=== PATIENT | female | born 1955 | race Caucasian/White ===

== ENCOUNTER 2017-10-25 13:29 | Inpatient (IN) | payer OTHER ==
[2017-10-25] MEDS ORDERED: SODIUM CHLORIDE 0.9% 1000ML 1,000 ML IV SCH (13:45)
[2017-10-25 14:05] LABS: HEMATOCRIT 36 % (35-47); HEMOGLOBIN 12.4 gm/dl (12.0-15.5); MEAN CORPUSCULAR HEMOGLOBIN 32.6 pg (27.0-32.0); MEAN CORPUSCULAR HGB CONC 34.6 gm/dl (32.0-36.0); MEAN CORPUSCULAR VOLUME 94 fL (81-99)
[2017-10-25 14:10] LABS: CALCIUM 7.5 mg/dl (8.5-10.1); CARBON DIOXIDE 21.2 mEq/L (21-32); CREATININE 1.79 mg/dl (0.60-1.00); POTASSIUM 4.5 mMol/L (3.5-5.1)
[2017-10-25 14:23] LABS: BAND NEUTROPHILS % (MANUAL) 8 %; BASOPHILS % (MANUAL) 0 % (0-3); EOSINOPHILS % (MANUAL) 1 % (0-9); LYMPHOCYTES % (MANUAL) 12 % (10-50); MONOCYTES % (MANUAL) 5 % (0-12); NEUTROPHILS % (MANUAL) 74 % (37-80); NORMAL RBCS PRESENT
[2017-10-25 14:35] LABS: APPEARANCE,URINE Turbid; BILIRUBIN,URINE NEGATIVE (NEGATIVE); COLOR,URINE Dark yellow; GLUCOSE, URINE (UA) NEGATIVE (NEGATIVE); KETONES,URINE TRACE (NEGATIVE); LEUKOCYTE ESTERASE ,URINE 3+ (NEGATIVE); NITRATE,URINE NEGATIVE (NEGATIVE); OCCULT BLOOD,URINE 3+ (NEG-TRACE); PH,URINE 8.5
[2017-10-25 14:47] LABS: BACTERIA 4+ (< 1+); CRYSTALS NEGATIVE (0-3 AVE/HPF); EPITHELIAL CELLS 0-1 (SQUAMOUS)
[2017-10-25] MEDS ORDERED: SODIUM CHLORIDE 0.9% 1000ML 1,000 ML IV ONE (15:05)
[2017-10-25] MEDS ORDERED: LEVOFLOXACIN 25 MG/ML SOL IV ONE (15:13)
[2017-10-25] MEDS ORDERED: LEVOFLOXACIN 25 MG/ML 500 MG in SODIUM CHLORIDE 0.9% 100 ML 100 ML IV SCH (15:15)
[2017-10-25] MEDS ORDERED: CIPROFLOXACIN HCL 500 MG TAB PO SCH (15:15)
[2017-10-25] MEDS ORDERED: MAGNESIUM HYDROXIDE 30 ML SUS PO PRN (17:10)
[2017-10-25] MEDS: SODIUM CHLORIDE 0.9% 1000ML 1,000 ML IV SCH ×2 (17:44→23:58)
[2017-10-25] MEDS: ENOXAPARIN 40 MG SOL SC SCH ×2 (19:13→20:18)
[2017-10-25] MEDS ORDERED: DIVALPROEX 250 MG TAB.ER.24H PO ONE (20:08)
[2017-10-25] MEDS: SENNOSIDES A AND B 8.6 MG TAB PO SCH (20:17)
[2017-10-25] MEDS: DOCUSATE SODIUM 100 MG SGL PO SCH (20:17)
[2017-10-25] MEDS: DIVALPROEX 250 MG TCP PO SCH (20:17)
[2017-10-25] MEDS ORDERED: Non-Formulary Medication MISC (Divalproex Sodium 1,000 mg) PO SCH (21:00)
[2017-10-25] MEDS ORDERED: Non-Formulary Medication MISC (Sennosides/Docusate Sodium [Senna-S 50 Mg-8.6 Mg] 1 TAB) PO SCH (21:00)
[2017-10-25] MEDS: ROPINIROLE HYDROCHLORIDE 2 MG PO SCH (21:27)
[2017-10-26] MEDS: SODIUM CHLORIDE 0.9% 1000ML 1,000 ML IV SCH (06:40)
[2017-10-26 06:44] LABS: ALBUMIN 1.3 gm/dl (3.4-5.0); BILIRUBIN,TOTAL 0.6 mg/dl (0.2-1.0); CALCIUM 7.4 mg/dl (8.5-10.1); CARBON DIOXIDE 24.2 mEq/L (21-32); CREATININE 1.19 mg/dl (0.60-1.00); MAGNESIUM 2.1 mg/dl (1.8-2.4); POTASSIUM 3.3 mMol/L (3.5-5.1)
[2017-10-26] MEDS ORDERED: Non-Formulary Medication MISC (Levothyroxine Sodium 88 Mcg 88 MCG) PO SCH (07:00)
[2017-10-26 08:13] LABS: BASOPHILS % (AUTO) 0 % (0-3); EOSINOPHILS % (AUTO) 0 % (0-9); HEMATOCRIT 33 % (35-47); HEMOGLOBIN 11.2 gm/dl (12.0-15.5); LYMPHOCYTES % (AUTO) 9.37 % (10-50); MEAN CORPUSCULAR HEMOGLOBIN 32.4 pg (27.0-32.0); MEAN CORPUSCULAR HGB CONC 33.8 gm/dl (32.0-36.0); MEAN CORPUSCULAR VOLUME 96 fL (81-99); MONOCYTES % (AUTO) 6.4 % (0-12); NEUTROPHILS % (AUTO) 83.8 % (37-80)
[2017-10-26] MEDS: DOCUSATE SODIUM 100 MG SGL PO SCH ×2 (08:49→20:54)
[2017-10-26] MEDS: POLYETHYLENE GLYCOL 17 GM/1 TBS PDS PO SCH (08:49)
[2017-10-26] MEDS: SENNOSIDES A AND B 8.6 MG TAB PO SCH ×2 (08:50→20:54)
[2017-10-26] MEDS: PANTOPRAZOLE SODIUM 40 MG ECT PO SCH (08:50)
[2017-10-26] MEDS: CETIRIZINE HYDROCHLORIDE 10 MG TAB PO SCH (08:51)
[2017-10-26] MEDS ORDERED: DIVALPROEX 250 MG TAB.ER.24H PO ONE (08:55)
[2017-10-26] MEDS: DIVALPROEX 250 MG TCP PO SCH ×2 (08:55→20:55)
[2017-10-26] MEDS ORDERED: FLUTICASONE PROPIONATE INH SCH (09:00)
[2017-10-26] MEDS ORDERED: ENOXAPARIN 60 MG SOL SC SCH (09:00)
[2017-10-26] MEDS ORDERED: Non-Formulary Medication MISC (Polyethylene Glycol 3350 [Polyethylene Glycol* (Miralax)] PO SCH (09:00)
[2017-10-26] MEDS: DEXTROSE/SALINE 0.45/KCL 20MEQ 1,000 ML/1,000 ML SOL IV SCH ×2 (10:00→20:50)
[2017-10-26] MEDS: POTASSIUM CHLORIDE 10 MEQ TER PO SCH ×2 (10:06→20:53)
[2017-10-26] MEDS: CIPROFLOXACIN HCL 500 MG TAB PO SCH ×2 (10:07→20:55)
[2017-10-26] MEDS: METOPROLOL TARTRATE 25 MG TAB PO SCH ×2 (10:09→20:57)
[2017-10-26] MEDS: FLUTICASONE PROPIONATE SPR NAS SCH (10:15)
[2017-10-26] MEDS: LIDOCAINE 5% PATCH 1 PATCH TDM TOP SCH ×2 (10:48→22:13)
[2017-10-26] MEDS: LEVOTHYROXINE SODIUM 88 MCG TAB PO SCH (11:26)
[2017-10-26] MEDS: PREGABALIN 100 MG CAP PO SCH ×2 (16:55→20:52)
[2017-10-26] MEDS: ROPINIROLE HYDROCHLORIDE 2 MG PO SCH (20:51)
[2017-10-26] MEDS: ENOXAPARIN 40 MG SOL SC SCH (20:57)
[2017-10-27] MEDS: LEVOTHYROXINE SODIUM 88 MCG TAB PO SCH (06:22)
[2017-10-27] MEDS: DEXTROSE/SALINE 0.45/KCL 20MEQ 1,000 ML/1,000 ML SOL IV SCH ×2 (06:23→07:07)
[2017-10-27] MEDS: SENNOSIDES A AND B 8.6 MG TAB PO SCH ×2 (09:45→22:09)
[2017-10-27] MEDS: DOCUSATE SODIUM 100 MG SGL PO SCH ×2 (09:45→22:06)
[2017-10-27] MEDS: DIVALPROEX 250 MG TCP PO SCH ×2 (09:46→22:07)
[2017-10-27] MEDS: PANTOPRAZOLE SODIUM 40 MG ECT PO SCH (09:47)
[2017-10-27] MEDS: POLYETHYLENE GLYCOL 17 GM/1 TBS PDS PO SCH (09:47)
[2017-10-27] MEDS: CETIRIZINE HYDROCHLORIDE 10 MG TAB PO SCH (09:47)
[2017-10-27] MEDS: CIPROFLOXACIN HCL 500 MG TAB PO SCH ×2 (09:48→22:09)
[2017-10-27] MEDS: PREGABALIN 100 MG CAP PO SCH ×3 (09:50→22:08)
[2017-10-27] MEDS: METOPROLOL TARTRATE 25 MG TAB PO SCH ×2 (09:50→22:08)
[2017-10-27] MEDS: LIDOCAINE 5% PATCH 1 PATCH TDM TOP SCH (09:54)
[2017-10-27] MEDS: POTASSIUM CHLORIDE 10 MEQ TER PO SCH ×2 (09:59→22:07)
[2017-10-27] MEDS: MULTIVITAMIN2 1 EA TAB PO SCH (09:59)
[2017-10-27] MEDS: SODIUM CHLORIDE 0.9% FLUSH 10 ML SOL IV SCH ×2 (14:25→22:10)
[2017-10-27] MEDS: FLUTICASONE PROPIONATE SPR NAS SCH (22:06)
[2017-10-27] MEDS: ROPINIROLE HYDROCHLORIDE 2 MG PO SCH (22:09)
[2017-10-27] MEDS: ENOXAPARIN 40 MG SOL SC SCH (22:12)
[2017-10-28] MEDS: SODIUM CHLORIDE 0.9% FLUSH 10 ML SOL IV SCH ×3 (06:05→21:17)
[2017-10-28 07:17] LABS: CALCIUM 7.5 mg/dl (8.5-10.1); CARBON DIOXIDE 24.2 mEq/L (21-32); CREATININE 0.99 mg/dl (0.60-1.00); POTASSIUM 3.3 mMol/L (3.5-5.1)
[2017-10-28] MEDS: LEVOTHYROXINE SODIUM 88 MCG TAB PO SCH (07:30)
[2017-10-28 07:51] LABS: BASOPHILS % (AUTO) 1 % (0-3); EOSINOPHILS % (AUTO) 0 % (0-9); HEMATOCRIT 31 % (35-47); LYMPHOCYTES % (AUTO) 14.1 % (10-50); MEAN CORPUSCULAR HEMOGLOBIN 33.8 pg (27.0-32.0); MEAN CORPUSCULAR HGB CONC 35.6 gm/dl (32.0-36.0); MEAN CORPUSCULAR VOLUME 95 fL (81-99); MONOCYTES % (AUTO) 8.9 % (0-12); NEUTROPHILS % (AUTO) 76.4 % (37-80)
[2017-10-28] MEDS: DOCUSATE SODIUM 100 MG SGL PO SCH ×2 (08:27→21:14)
[2017-10-28] MEDS: SENNOSIDES A AND B 8.6 MG TAB PO SCH ×2 (08:27→21:17)
[2017-10-28] MEDS: POLYETHYLENE GLYCOL 17 GM/1 TBS PDS PO SCH (08:28)
[2017-10-28] MEDS: CETIRIZINE HYDROCHLORIDE 10 MG TAB PO SCH (08:29)
[2017-10-28] MEDS: PANTOPRAZOLE SODIUM 40 MG ECT PO SCH (08:29)
[2017-10-28] MEDS: FLUTICASONE PROPIONATE SPR NAS SCH (08:30)
[2017-10-28] MEDS: POTASSIUM CHLORIDE 10 MEQ TER PO SCH ×2 (08:31→21:15)
[2017-10-28] MEDS: PREGABALIN 100 MG CAP PO SCH (08:32)
[2017-10-28] MEDS: MULTIVITAMIN2 1 EA TAB PO SCH (08:34)
[2017-10-28] MEDS: DIVALPROEX 250 MG TCP PO SCH ×2 (08:35→21:14)
[2017-10-28] MEDS: LIDOCAINE 5% PATCH 1 PATCH TDM TOP SCH ×2 (09:48→21:13)
[2017-10-28] MEDS: CIPROFLOXACIN HCL 500 MG TAB PO SCH ×2 (09:49→21:15)
[2017-10-28] MEDS: ACETAMINOPHEN 325 MG PO PRN (21:14)
[2017-10-28] MEDS: ROPINIROLE HYDROCHLORIDE 2 MG PO SCH (21:15)
[2017-10-28] MEDS: ENOXAPARIN 40 MG SOL SC SCH (21:21)
[2017-10-29] MEDS: SODIUM CHLORIDE 0.9% FLUSH 10 ML SOL IV SCH ×4 (06:20→22:01)
[2017-10-29] MEDS: ACETAMINOPHEN 325 MG PO PRN ×3 (06:20→20:41)
[2017-10-29] MEDS: LEVOTHYROXINE SODIUM 88 MCG TAB PO SCH (06:20)
[2017-10-29] MEDS: DIVALPROEX 250 MG TCP PO SCH (08:40)
[2017-10-29] MEDS: FLUTICASONE PROPIONATE SPR NAS SCH (08:40)
[2017-10-29] MEDS: DOCUSATE SODIUM 100 MG SGL PO SCH ×2 (08:40→20:44)
[2017-10-29] MEDS: POTASSIUM CHLORIDE 10 MEQ TER PO SCH ×2 (08:40→20:43)
[2017-10-29] MEDS: MULTIVITAMIN2 1 EA TAB PO SCH (08:41)
[2017-10-29] MEDS: SENNOSIDES A AND B 8.6 MG TAB PO SCH ×2 (08:41→20:43)
[2017-10-29] MEDS: PANTOPRAZOLE SODIUM 40 MG ECT PO SCH (08:41)
[2017-10-29] MEDS: CIPROFLOXACIN HCL 500 MG TAB PO SCH ×2 (08:41→20:44)
[2017-10-29] MEDS: LIDOCAINE 5% PATCH 1 PATCH TDM TOP SCH ×2 (08:48→20:41)
[2017-10-29] MEDS: POLYETHYLENE GLYCOL 17 GM/1 TBS PDS PO SCH (08:48)
[2017-10-29] MEDS: ROPINIROLE HYDROCHLORIDE 2 MG PO SCH (20:42)
[2017-10-29] MEDS: ENOXAPARIN 40 MG SOL SC SCH (20:51)
[2017-10-29] MEDS ORDERED: DIVALPROEX 250 MG TCP PO SCH (21:00)
[2017-10-30] MEDS: LEVOTHYROXINE SODIUM 88 MCG TAB PO SCH (06:33)
[2017-10-30] MEDS: SODIUM CHLORIDE 0.9% FLUSH 10 ML SOL IV SCH ×4 (06:33→21:03)
[2017-10-30] MEDS: ACETAMINOPHEN 325 MG PO PRN ×2 (06:33→12:18)
[2017-10-30 08:01] LABS: BASOPHILS % (AUTO) 1 % (0-3); CALCIUM 7.6 mg/dl (8.5-10.1); CARBON DIOXIDE 21.5 mEq/L (21-32); CREATININE 1.21 mg/dl (0.60-1.00); EOSINOPHILS % (AUTO) 0 % (0-9); HEMATOCRIT 30 % (35-47); HEMOGLOBIN 10.4 gm/dl (12.0-15.5); LYMPHOCYTES % (AUTO) 16.2 % (10-50); MEAN CORPUSCULAR HGB CONC 34.2 gm/dl (32.0-36.0); MEAN CORPUSCULAR VOLUME 96 fL (81-99); NEUTROPHILS % (AUTO) 74.1 % (37-80); POTASSIUM 3.2 mMol/L (3.5-5.1)
[2017-10-30] MEDS: SENNOSIDES A AND B 8.6 MG TAB PO SCH ×2 (08:36→21:02)
[2017-10-30] MEDS: CIPROFLOXACIN HCL 500 MG TAB PO SCH (08:36)
[2017-10-30] MEDS: POTASSIUM CHLORIDE 10 MEQ TER PO SCH ×2 (08:36→21:00)
[2017-10-30] MEDS: PANTOPRAZOLE SODIUM 40 MG ECT PO SCH (08:36)
[2017-10-30] MEDS: MULTIVITAMIN2 1 EA TAB PO SCH (08:36)
[2017-10-30] MEDS: FLUTICASONE PROPIONATE SPR NAS SCH (08:37)
[2017-10-30] MEDS: DOCUSATE SODIUM 100 MG SGL PO SCH ×2 (08:37→21:01)
[2017-10-30] MEDS: DIVALPROEX 250 MG TCP PO SCH ×2 (08:37→21:01)
[2017-10-30] MEDS: LIDOCAINE 5% PATCH 1 PATCH TDM TOP SCH ×2 (08:38→20:59)
[2017-10-30] MEDS: POLYETHYLENE GLYCOL 17 GM/1 TBS PDS PO SCH (08:38)
[2017-10-30] MEDS: LORAZEPAM 2 MG/ML SOL IV PRN ×2 (11:32→21:19)
[2017-10-30] MEDS: DEXTROSE 1000 ML 1,000 ML IV SCH ×2 (11:32→21:30)
[2017-10-30] MEDS: AMOXICILLIN 125/5 ML BOTTLE PO SCH ×2 (12:18→20:59)
[2017-10-30] MEDS ORDERED: AMOXICILLIN 250 MG CAP PO SCH (21:00)
[2017-10-30] MEDS: ROPINIROLE HYDROCHLORIDE 2 MG PO SCH (21:02)
[2017-10-30] MEDS: ENOXAPARIN 40 MG SOL SC SCH (21:19)
[2017-10-31] MEDS: SODIUM CHLORIDE 0.9% FLUSH 10 ML SOL IV SCH ×3 (06:22→21:10)
[2017-10-31] MEDS: LEVOTHYROXINE SODIUM 88 MCG TAB PO SCH (06:22)
[2017-10-31 07:16] LABS: CALCIUM 7.6 mg/dl (8.5-10.1); CARBON DIOXIDE 20.6 mEq/L (21-32); CREATININE 1.06 mg/dl (0.60-1.00); POTASSIUM 3.1 mMol/L (3.5-5.1)
[2017-10-31] MEDS: DEXTROSE 1000 ML 1,000 ML IV SCH ×2 (08:05→19:03)
[2017-10-31 08:44] LABS: BASOPHILS % (AUTO) 1 % (0-3); EOSINOPHILS % (AUTO) 0 % (0-9); HEMATOCRIT 30 % (35-47); HEMOGLOBIN 10.2 gm/dl (12.0-15.5); LYMPHOCYTES % (AUTO) 19.2 % (10-50); MEAN CORPUSCULAR HEMOGLOBIN 32.8 pg (27.0-32.0); MEAN CORPUSCULAR HGB CONC 33.8 gm/dl (32.0-36.0); MEAN CORPUSCULAR VOLUME 97 fL (81-99); MONOCYTES % (AUTO) 8.5 % (0-12)
[2017-10-31] MEDS: MULTIVITAMIN2 1 EA TAB PO SCH (09:43)
[2017-10-31] MEDS: SENNOSIDES A AND B 8.6 MG TAB PO SCH ×2 (09:44→20:07)
[2017-10-31] MEDS: DOCUSATE SODIUM 100 MG SGL PO SCH ×2 (09:44→20:08)
[2017-10-31] MEDS: PANTOPRAZOLE SODIUM 40 MG ECT PO SCH (09:44)
[2017-10-31] MEDS: POLYETHYLENE GLYCOL 17 GM/1 TBS PDS PO SCH (09:45)
[2017-10-31] MEDS: POTASSIUM CHLORIDE 10 MEQ TER PO SCH ×2 (09:45→20:11)
[2017-10-31] MEDS: DIVALPROEX 250 MG TCP PO SCH ×2 (09:46→20:11)
[2017-10-31] MEDS: ESTRADIOL 2 MG PO SCH (09:46)
[2017-10-31] MEDS: AMOXICILLIN 125/5 ML BOTTLE PO SCH ×2 (10:00→20:09)
[2017-10-31] MEDS: LIDOCAINE 5% PATCH 1 PATCH TDM TOP SCH ×2 (10:00→20:40)
[2017-10-31] MEDS: FENTANYL 12 MCG PATCH TDM TD SCH (10:00)
[2017-10-31] MEDS: FLUTICASONE PROPIONATE SPR NAS SCH (10:00)
[2017-10-31] MEDS: ENOXAPARIN 40 MG SOL SC SCH (20:13)
[2017-10-31] MEDS: ROPINIROLE HYDROCHLORIDE 2 MG PO SCH (20:14)
[2017-10-31] MEDS ORDERED: POTASSIUM CHLORIDE 10 MEQ TER PO ONE (21:00)
[2017-11-01] MEDS: LIDOCAINE 5% PATCH 1 PATCH TDM TOP SCH ×3 (02:07→22:34)
[2017-11-01] MEDS: LORAZEPAM 2 MG/ML SOL IV PRN (03:37)
[2017-11-01] MEDS: SODIUM CHLORIDE 0.9% FLUSH 10 ML SOL IV SCH ×4 (03:39→21:07)
[2017-11-01] MEDS: DEXTROSE 1000 ML 1,000 ML IV SCH ×2 (03:41→13:46)
[2017-11-01] MEDS: LEVOTHYROXINE SODIUM 88 MCG TAB PO SCH (06:02)
[2017-11-01 07:22] LABS: BASOPHILS % (AUTO) 1 % (0-3); EOSINOPHILS % (AUTO) 1 % (0-9); HEMATOCRIT 28 % (35-47); HEMOGLOBIN 9.5 gm/dl (12.0-15.5); LYMPHOCYTES % (AUTO) 27.8 % (10-50); MEAN CORPUSCULAR HEMOGLOBIN 32.5 pg (27.0-32.0); MEAN CORPUSCULAR HGB CONC 33.8 gm/dl (32.0-36.0); MEAN CORPUSCULAR VOLUME 96 fL (81-99); MONOCYTES % (AUTO) 8.3 % (0-12); NEUTROPHILS % (AUTO) 62.2 % (37-80)
[2017-11-01 07:41] LABS: CALCIUM 7.7 mg/dl (8.5-10.1); CARBON DIOXIDE 23.3 mEq/L (21-32); CREATININE 0.98 mg/dl (0.60-1.00); POTASSIUM 3.5 mMol/L (3.5-5.1)
[2017-11-01] MEDS: DOCUSATE SODIUM 100 MG SGL PO SCH ×2 (10:27→21:00)
[2017-11-01] MEDS: ESTRADIOL 2 MG PO SCH (10:28)
[2017-11-01] MEDS: FLUTICASONE PROPIONATE SPR NAS SCH (10:29)
[2017-11-01] MEDS: PANTOPRAZOLE SODIUM 40 MG ECT PO SCH (10:30)
[2017-11-01] MEDS: MULTIVITAMIN2 1 EA TAB PO SCH (10:31)
[2017-11-01] MEDS: SENNOSIDES A AND B 8.6 MG TAB PO SCH ×2 (10:31→21:02)
[2017-11-01] MEDS: AMOXICILLIN 125/5 ML BOTTLE PO SCH ×2 (10:41→21:07)
[2017-11-01] MEDS: POTASSIUM CHLORIDE 10 MEQ TER PO SCH ×2 (10:42→21:01)
[2017-11-01] MEDS: POLYETHYLENE GLYCOL 17 GM/1 TBS PDS PO SCH (10:44)
[2017-11-01] MEDS: DIVALPROEX 250 MG TAB.ER.24H PO SCH ×2 (11:13→21:01)
[2017-11-01] MEDS: ENOXAPARIN 80 MG SOL SC SCH (13:36)
[2017-11-01] MEDS: DIVALPROEX 250 MG TCP PO SCH (16:56)
[2017-11-01] MEDS: WARFARIN SODIUM 5 MG TAB PO SCH (19:04)
[2017-11-01] MEDS: ROPINIROLE HYDROCHLORIDE 2 MG PO SCH (20:59)
[2017-11-02] MEDS: DEXTROSE 1000 ML 1,000 ML IV SCH ×3 (00:33→20:45)
[2017-11-02] MEDS: ENOXAPARIN 80 MG SOL SC SCH ×3 (00:34→23:51)
[2017-11-02] MEDS: SODIUM CHLORIDE 0.9% FLUSH 10 ML SOL IV SCH ×3 (05:29→21:02)
[2017-11-02] MEDS: LEVOTHYROXINE SODIUM 88 MCG TAB PO SCH (06:13)
[2017-11-02 08:07] LABS: CALCIUM 7.5 mg/dl (8.5-10.1); CARBON DIOXIDE 23.1 mEq/L (21-32); CREATININE 0.87 mg/dl (0.60-1.00); POTASSIUM 3.5 mMol/L (3.5-5.1)
[2017-11-02] MEDS: AMOXICILLIN 125/5 ML BOTTLE PO SCH ×2 (08:18→20:47)
[2017-11-02] MEDS: POTASSIUM CHLORIDE 10 MEQ TER PO SCH ×2 (08:21→20:49)
[2017-11-02] MEDS: DOCUSATE SODIUM 100 MG SGL PO SCH ×2 (08:22→20:49)
[2017-11-02] MEDS: ESTRADIOL 2 MG PO SCH (08:22)
[2017-11-02] MEDS: DIVALPROEX 250 MG TAB.ER.24H PO SCH ×2 (08:22→20:48)
[2017-11-02] MEDS: SENNOSIDES A AND B 8.6 MG TAB PO SCH ×2 (08:23→20:49)
[2017-11-02] MEDS: POLYETHYLENE GLYCOL 17 GM/1 TBS PDS PO SCH ×2 (08:23→20:54)
[2017-11-02] MEDS: MULTIVITAMIN2 1 EA TAB PO SCH (08:23)
[2017-11-02] MEDS: PANTOPRAZOLE SODIUM 40 MG ECT PO SCH (08:23)
[2017-11-02] MEDS: FLUTICASONE PROPIONATE SPR NAS SCH (08:23)
[2017-11-02] MEDS ORDERED: FLEET ENEMA PR PRN (09:33)
[2017-11-02] MEDS: WARFARIN SODIUM 5 MG TAB PO SCH (17:39)
[2017-11-02] MEDS: ACETAMINOPHEN 325 MG PO PRN (17:39)
[2017-11-02] MEDS: ROPINIROLE HYDROCHLORIDE 2 MG PO SCH (20:50)
[2017-11-02] MEDS: LIDOCAINE 5% PATCH 1 PATCH TDM TOP SCH ×2 (21:02→23:00)
[2017-11-03] MEDS: SODIUM CHLORIDE 0.9% FLUSH 10 ML SOL IV SCH ×2 (06:04→14:20)
[2017-11-03] MEDS: LEVOTHYROXINE SODIUM 88 MCG TAB PO SCH (06:11)
[2017-11-03] MEDS: DEXTROSE 1000 ML 1,000 ML IV SCH ×3 (06:51→23:40)
[2017-11-03 07:26] LABS: CALCIUM 7.4 mg/dl (8.5-10.1); CARBON DIOXIDE 24.1 mEq/L (21-32); CREATININE 0.78 mg/dl (0.60-1.00); POTASSIUM 4.1 mMol/L (3.5-5.1)
[2017-11-03 09:31] LABS: INR > 10.0 (0.86-1.12)
[2017-11-03 09:51] LABS: HEMOGLOBIN 9.3 gm/dl (12.0-15.5)
[2017-11-03 09:52] LABS: BASOPHILS % (AUTO) 1 % (0-3); EOSINOPHILS % (AUTO) 1 % (0-9); HEMATOCRIT 28 % (35-47); LYMPHOCYTES % (AUTO) 24.9 % (10-50); MEAN CORPUSCULAR HEMOGLOBIN 31.7 pg (27.0-32.0); MEAN CORPUSCULAR HGB CONC 32.6 gm/dl (32.0-36.0); MEAN CORPUSCULAR VOLUME 97 fL (81-99); MONOCYTES % (AUTO) 7.2 % (0-12); NEUTROPHILS % (AUTO) 65.9 % (37-80)
[2017-11-03] MEDS: DOCUSATE SODIUM 100 MG SGL PO SCH ×3 (09:52→20:17)
[2017-11-03] MEDS: DIVALPROEX 250 MG TAB.ER.24H PO SCH ×3 (09:52→20:18)
[2017-11-03] MEDS: ESTRADIOL 2 MG PO SCH (09:53)
[2017-11-03] MEDS: FLUTICASONE PROPIONATE SPR NAS SCH ×2 (09:54→09:56)
[2017-11-03] MEDS: POTASSIUM CHLORIDE 10 MEQ TER PO SCH ×3 (09:54→20:17)
[2017-11-03] MEDS: PANTOPRAZOLE SODIUM 40 MG ECT PO SCH ×2 (09:55→09:56)
[2017-11-03] MEDS: POLYETHYLENE GLYCOL 17 GM/1 TBS PDS PO SCH ×3 (09:55→20:19)
[2017-11-03] MEDS: MULTIVITAMIN2 1 EA TAB PO SCH ×2 (09:55→14:25)
[2017-11-03] MEDS: SENNOSIDES A AND B 8.6 MG TAB PO SCH ×3 (09:56→20:17)
[2017-11-03] MEDS: AMOXICILLIN 125/5 ML BOTTLE PO SCH ×3 (10:02→20:17)
[2017-11-03] MEDS: FENTANYL 12 MCG PATCH TDM TD SCH (10:02)
[2017-11-03] MEDS ORDERED: PHYTONADIONE 10 MG/ML SOL IM ONE (10:48)
[2017-11-03 11:52] LABS: ALBUMIN 1.4 gm/dl (3.4-5.0); BILIRUBIN,DIRECT 0.4 mg/dl (0.0-0.2); BILIRUBIN,TOTAL 0.6 mg/dl (0.2-1.0); TOTAL PROTEIN 6.1 gm/dl (6.4-8.2)
[2017-11-03] MEDS: ROPINIROLE HYDROCHLORIDE 2 MG PO SCH ×2 (15:01→20:17)
[2017-11-03] MEDS: LIDOCAINE 5% PATCH 1 PATCH TDM TOP SCH (19:03)
[2017-11-03] MEDS ORDERED: LIDOCAINE 5% PATCH 1 PATCH TDM TOP SCH (21:00)
[2017-11-04 00:10] VITALS: RESP 16; O2SAT 97
[2017-11-04] MEDS: SODIUM CHLORIDE 0.9% FLUSH 10 ML SOL IV SCH ×2 (03:04→06:50)
[2017-11-04] MEDS: LEVOTHYROXINE SODIUM 88 MCG TAB PO SCH ×2 (06:44→08:31)
[2017-11-04] MEDS: ROPINIROLE HYDROCHLORIDE 2 MG PO SCH ×3 (06:45→14:08)
[2017-11-04] MEDS: ACETAMINOPHEN 325 MG PO PRN ×2 (07:01→08:30)
[2017-11-04 07:28] LABS: CALCIUM 7.3 mg/dl (8.5-10.1); CARBON DIOXIDE 23.9 mEq/L (21-32); CREATININE 0.75 mg/dl (0.60-1.00); POTASSIUM 3.8 mMol/L (3.5-5.1)
[2017-11-04 07:45] VITALS: BP 96/60; PULSE 80
[2017-11-04 07:51] LABS: HEMATOCRIT 29 % (35-47)
[2017-11-04 08:09] LABS: INR 6.28 (0.86-1.12)
[2017-11-04] MEDS: DOCUSATE SODIUM 100 MG SGL PO SCH (08:33)
[2017-11-04] MEDS: DIVALPROEX 250 MG TAB.ER.24H PO SCH (08:33)
[2017-11-04] MEDS: ESTRADIOL 2 MG PO SCH (08:34)
[2017-11-04] MEDS: POTASSIUM CHLORIDE 10 MEQ TER PO SCH (08:34)
[2017-11-04] MEDS: MULTIVITAMIN2 1 EA TAB PO SCH (08:35)
[2017-11-04] MEDS: PANTOPRAZOLE SODIUM 40 MG ECT PO SCH (08:35)
[2017-11-04] MEDS: SENNOSIDES A AND B 8.6 MG TAB PO SCH (08:36)
[2017-11-04] MEDS: FLUTICASONE PROPIONATE SPR NAS SCH (08:46)
[2017-11-04] MEDS: AMOXICILLIN 125/5 ML BOTTLE PO SCH (09:32)
[2017-11-04 11:08] VITALS: TEMP 97.6
[2017-11-04] MEDS: POLYETHYLENE GLYCOL 17 GM/1 TBS PDS PO SCH (11:17)
[2017-11-04 21:57] LABS: HEMOGLOBIN 9.1 gm/dl (12.0-15.5); MEAN CORPUSCULAR VOLUME 90 fL (81-99)
[2017-11-04 21:58] LABS: MEAN CORPUSCULAR HEMOGLOBIN 31.5 pg (27.0-32.0)
== END 2017-11-04 15:00 | DRG 689 ==
LOC: ED 13:29 → UNDOADMIN 16:05 → ACUTE CARE 16:05
PROVIDERS: ADMIT Family Medicine; ATTEND Family Medicine
PROC: F01L5YZ Range of Motion and Joint Integrity Assessment of Musculoskeletal System - Lower Back / Lower Extremity using Other Equipment (ICD-10-PCS; principal; 2017-11-03)
PROC: F0134ZZ Motor Function Assessment of Neurological System - Whole Body (ICD-10-PCS; 2017-11-03)
DX: N39.0 Urinary tract infection, site not specified (principal); L89.153 Pressure ulcer of sacral region, stage 3; E87.0 Hyperosmolality and hypernatremia; I82.432 Acute embolism and thrombosis of left popliteal vein; L97.429 Non-pressure chronic ulcer of left heel and midfoot with unspecified severity; E86.0 Dehydration; R41.0 Disorientation, unspecified; R00.0 Tachycardia, unspecified; Z98.890 Other specified postprocedural states; R62.7 Adult failure to thrive; R40.0 Somnolence; D64.9 Anemia, unspecified; D69.6 Thrombocytopenia, unspecified; B96.20 Unspecified Escherichia coli [E. coli] as the cause of diseases classified elsewhere; E88.09 Other disorders of plasma-protein metabolism, not elsewhere classified; R79.1 Abnormal coagulation profile
CPT/HCPCS: 36415; 70450; 71045; 74019; 80048; 80053; 80076; 81001; 83735; 84443; 85007; 85025; 85027; 85610; 87077; 87088; 87186; 93005; 93012; 96365; 96366; 99212; 99213; 99214; 99222; 99231; 99232; 99233; 99285; J1650; J1956; J2060; J3430; A6232; A6402; A9270-GY

== ENCOUNTER 2017-11-08 15:11 | Emergency (ER) | payer OTHER ==
[2017-11-08] MEDS ORDERED: PANTOPRAZOLE SODIUM 40 MG/10 ML PDS IV ONE (15:56)
[2017-11-08] MEDS ORDERED: ONDANSETRON HCL 4 MG/2 ML SOL IV ONE (15:56)
[2017-11-08] MEDS ORDERED: SODIUM CHLORIDE 0.9% FLUSH 10 ML SOL IV PRN (15:56)
[2017-11-08] MEDS ORDERED: SODIUM CHLORIDE 0.9% 1000ML 1,000 ML IV ONE ×2 (15:56→18:41)
[2017-11-08] MEDS ORDERED: SODIUM CHLORIDE 0.9% 500 ML 500 ML IV ONE ×2 (15:58→16:12)
[2017-11-08] MEDS ORDERED: ONDANSETRON HCL 4 MG/2 ML SOL ONE (16:11)
[2017-11-08] MEDS ORDERED: PANTOPRAZOLE SODIUM 40 MG/10 ML PDS ONE (16:11)
[2017-11-08 16:31] LABS: HEMATOCRIT 30 % (35-47); HEMOGLOBIN 9.6 gm/dl (12.0-15.5); MEAN CORPUSCULAR HEMOGLOBIN 31.4 pg (27.0-32.0); MEAN CORPUSCULAR HGB CONC 32.1 gm/dl (32.0-36.0); MEAN CORPUSCULAR VOLUME 98 fL (81-99)
[2017-11-08 16:47] LABS: ALBUMIN 1.3 gm/dl (3.4-5.0); ALKALINE PHOSPHATASE 111 IU/L (46-116); ALT 14 IU/L (14-63); AST 23 IU/L (15-37); BILIRUBIN,TOTAL 1.3 mg/dl (0.2-1.0); BLOOD UREA NITROGEN 52 mg/dl (7-18); CALCIUM 7.7 mg/dl (8.5-10.1); CARBON DIOXIDE 22.5 mEq/L (21-32); CHLORIDE 117 mMol/L (98-107); CREATININE 3.13 mg/dl (0.60-1.00); GLOM FILT RATE 15 mL/min (>60); GLUCOSE 92 mg/dl (74-106); POTASSIUM 5.7 mMol/L (3.5-5.1); SODIUM 149 mMol/L (136-145); TOTAL PROTEIN 6.9 gm/dl (6.4-8.2); TROP I < 0.017 ng/ml (0.000-0.056)
[2017-11-08 17:01] LABS: APPEARANCE,URINE Cloudy; BILIRUBIN,URINE 1+ (NEGATIVE); COLOR,URINE Yellow; GLUCOSE, URINE (UA) NEGATIVE (NEGATIVE); KETONES,URINE TRACE (NEGATIVE); LEUKOCYTE ESTERASE ,URINE 3+ (NEGATIVE); NITRATE,URINE NEGATIVE (NEGATIVE); OCCULT BLOOD,URINE 3+ (NEG-TRACE); PH,URINE 5.5
[2017-11-08 17:04] LABS: ICTOTEST,URINE NEGATIVE (NEGATIVE); RBC,URINE UNABLE (0-3AV/HPF)
[2017-11-08 17:05] LABS: BACTERIA UNABLE (< 1+); CRYSTALS UNABLE (0-3 AVE/HPF); EPITHELIAL CELLS UNABLE (SQUAMOUS); WBC,URINE TNTC (0-5AV/HPF)
[2017-11-08] MEDS ORDERED: VANCOMYCIN HCL 500 MG PDS 1,000 MG in SODIUM CHLORIDE 0.9% 250 ML 250 ML IV ONE (17:12)
[2017-11-08] MEDS ORDERED: PIPERACILLIN/TAZOBACT 3.375 GM PDS IV ONE (17:13)
[2017-11-08] MEDS ORDERED: PIPERACILLIN/TAZOBACT 3.375 GM 3 GM in SODIUM CHLORIDE 0.9% 100 ML 100 ML IV SCH (17:15)
[2017-11-08 17:26] LABS: BAND NEUTROPHILS % (MANUAL) 2 %; BASOPHILS % (MANUAL) 1 % (0-3); EOSINOPHILS % (MANUAL) 0 % (0-9); LYMPHOCYTES % (MANUAL) 22 % (10-50); MONOCYTES % (MANUAL) 13 % (0-12); NEUTROPHILS % (MANUAL) 62 % (37-80)
[2017-11-08 17:27] LABS: ANISOCYTOSIS SLIGHT AMT
[2017-11-08 18:02] VITALS: TEMP 98.4
[2017-11-08] MEDS ORDERED: VANCOMYCIN HYDROCHLORIDE 500 MG PDS IV ONE (18:38)
[2017-11-08] MEDS ORDERED: NOREPINEPHRINE BITARTRATE 4 MG/4 ML SOL IV ONE (18:49)
[2017-11-08] MEDS ORDERED: NOREPINEPHRINE 4 MG/4 ML 4 MG in DEXTROSE 500 ML 500 ML IV SCH (19:00)
[2017-11-08 19:13] LABS: INR 1.3 (0.86-1.12)
[2017-11-08 19:24] VITALS: BP 82/39; PULSE 104; RESP 27; O2SAT 95
== END 2017-11-08 19:15 | disposition short-term general hospital (02) | DRG 871 ==
LOC: ED 15:11
DX: A41.9 Sepsis, unspecified organism (principal); R65.21 Severe sepsis with septic shock; K56.609 Unspecified intestinal obstruction, unspecified as to partial versus complete obstruction; D68.318 Other hemorrhagic disorder due to intrinsic circulating anticoagulants, antibodies, or inhibitors; E87.2 Acidosis; N30.90 Cystitis, unspecified without hematuria; E11.9 Type 2 diabetes mellitus without complications; I10 Essential (primary) hypertension; E78.5 Hyperlipidemia, unspecified; E03.9 Hypothyroidism, unspecified
CPT/HCPCS: 36415; 70450; 71045; 74176; 80053; 81001; 82800; 83880; 84484; 85007; 85027; 85610; 87040; 87077; 87088; 87186; 87205; 93005; 96365; 96366; 96374; 96375; 99070; 99291; 99292; J2405; J2543; J3370; J3490